=== PATIENT | male | born 1950 | race Caucasian/White ===

== ENCOUNTER 2018-11-23 20:12 | Emergency (ER) | payer MEDICARE, BC ==
[~2018-11-23] VITALS: Ht 185.4 cm; Wt 110.9 kg
[~2018-11-23 20:12] MED LIST: CLARISPRAY50 MCG/ACT IN; CLARITIN10 M1 PO; HYDROCHLOROT25 MG PO; LEVOTHYROXIN50 MCG PO; LISINOPRIL10 M1 PO; OMEGA-3 KRILL O1 CA1 PO; PERCOCET 5/325M1 TAB PO; PRILOSEC20 MG PO; PROZAC40 MG PO; XANAX0.25 MG PO
[2018-11-23 21:10] LABS: HEMATOCRIT 38.6 % (39.0-50.0); HEMOGLOBIN 13.1 g/dl (14.0-18.0); IMMATURE GRANULOCYTES 1.2 % (0.0-5.0); MEAN CELL VOLUME 91.5 fL CALC (80.0-100.0); MEAN CORPUSCULAR HGB CONC 33.9 g/L CALC (32.0-36.0); NEUT# 5.65 thou/uL (1.82-7.42); RED BLOOD COUNT 4.22 mill/uL (4.70-6.10)
[2018-11-23 21:24] LABS: ALBUMIN 4.5 g/dL (3.2-5.0); ALKALINE PHOSPHATASE 114 u/l (38-126); ANION GAP 17 (6-22 (CALC)); BILIRUBIN, TOTAL 0.4 mg/dL (0.0-1.4); BUN 21 mg/dL (8-23); BUN/CREATININE RATIO 18 (12-20 (CALC)); CARBON DIOXIDE 26 mmol/l (22-30); CHLORIDE 100 mmol/l (95-108); CREATININE 1.1 mg/dL (0.7-1.3); GFR > 60 ML/MIN (>=60 (CALC)); GFR FOR AFR.AMER. > 60 ML/MIN (>=60 (CALC)); POTASSIUM 4.8 mmol/l (3.5-5.1); SGOT/AST 29 u/l (19-48); SODIUM 138 mmol/l (137-146); TOTAL PROTEIN 7.9 g/dL (6.3-8.2)
[2018-11-23] MEDS ORDERED: ROBITUSSIN AC10 ML PO (22:08)
[2018-11-23] MEDS ORDERED: TAM75CAP PO (22:08)
[2018-11-23 22:20] VITALS: BP 147/83
== END 2018-11-23 22:22 | disposition home or self-care (01) ==
LOC: ED 20:12
PROVIDERS: Emergency Medicine
DX: J10.1 Influenza due to other identified influenza virus with other respiratory manifestations (principal); R05 Cough; R09.81 Nasal congestion

== ENCOUNTER 2019-12-08 | Emergency (ER) | payer MEDICARE, OTHER ==
[~2019-12-08] MED LIST changes: +ROBITUSSIN AC10 ML PO; +TAM75CAP PO
[2019-12-08] MEDS ORDERED: CIPROFLOXACN500 MG PO (11:43)
[2019-12-08 12:08] LABS: HEMATOCRIT 37.3 % (39.0-50.0); HEMOGLOBIN 12.4 g/dl (14.0-18.0); IMMATURE GRANULOCYTES 0.5 % (0.0-5.0); MEAN CELL VOLUME 92.1 fL CALC (80.0-100.0); MEAN CORPUSCULAR HGB 30.6 pG CALC (26.0-32.0); MEAN CORPUSCULAR HGB CONC 33.2 g/L CALC (32.0-36.0); NEUT# 3.71 thou/uL (1.82-7.42); RED BLOOD COUNT 4.05 mill/uL (4.70-6.10); RED CELL DISTRI WIDTH 12.2 % (11.5-15.5)
[2019-12-08 12:24] LABS: ALBUMIN 4.5 g/dL (3.2-5.0); ALKALINE PHOSPHATASE 84 u/l (38-126); AMYLASE 59 u/l (30-110); ANION GAP 14 (6-22 (CALC)); BUN 24 mg/dL (8-23); BUN/CREATININE RATIO 24 (12-20 (CALC)); CARBON DIOXIDE 25 mmol/l (22-30); CHLORIDE 104 mmol/l (95-108); GFR > 60 ML/MIN (>=60 (CALC)); GFR FOR AFR.AMER. > 60 ML/MIN (>=60 (CALC)); LIPASE 95 u/l (23-300); POTASSIUM 4.7 mmol/l (3.5-5.1); SODIUM 138 mmol/l (137-146); TOTAL PROTEIN 8.4 g/dL (6.3-8.2)
[2019-12-08 12:26] LABS: BILIRUBIN, TOTAL 0.7 mg/dL (0.0-1.4); SGOT/AST 35 u/l (19-48)
[2019-12-08 13:51] LABS: URINE BILIRUBIN - DIPSTICK NEGATIVE (NEGATIVE); URINE BLOOD DIPSTICK NEGATIVE (NEGATIVE); URINE CLARITY CLEAR; URINE COLOR YELLOW; URINE GLUCOSE - DIPSTICK NEGATIVE (NEGATIVE); URINE KETONE NEGATIVE (NEGATIVE); URINE LEUK ESTERASE NEGATIVE (Negative); URINE NITRITE - DIPSTICK NEGATIVE (Negative); URINE PH 5.5 (4.5-8.0); URINE PROTEIN - DIPSTICK NEGATIVE (NEG-TRACE); URINE UROBILINOGEN - DIPSTICK 0.2 E.U./dL (0.2)
[2019-12-08] MEDS ORDERED: PROTONIX40 M4 PO (16:08)
== END 2019-12-08 16:20 | disposition home or self-care (01) ==
PROVIDERS: Emergency Medicine
DX: K21.9 Gastro-esophageal reflux disease without esophagitis (principal); I10 Essential (primary) hypertension; R07.9 Chest pain, unspecified; R06.02 Shortness of breath
CPT/HCPCS: Q9967

== ENCOUNTER 2023-12-20 07:36 | Emergency (ER) | payer MEDICARE, OTHER ==
[~2023-12-20] VITALS: Ht 185.4 cm; Wt 116.0 kg
[~2023-12-20 07:36] MED LIST changes: +CIPROFLOXACN500 MG PO; +PROTONIX40 M4 PO
[2023-12-20] MEDS ORDERED: AMLODIPINE BESYL5 MG PO (07:55)
[2023-12-20] MEDS ORDERED: CVS MUCUS EXT1200 MG PO (08:47)
[2023-12-20] MEDS ORDERED: BENZONATATE200 MG PO (08:47)
[2023-12-20] MEDS ORDERED: ZITHROMAX250 MG PO (08:47)
[2023-12-20] MEDS ORDERED: TAM75CAP PO (08:48)
[2023-12-20 09:32] VITALS: BP 125/78
[2023-12-24] MEDS ORDERED: PREDNISONE20 MG PO (08:05)
[2023-12-24] MEDS ORDERED: MEDDOSEPAK PO (08:05)
== END 2023-12-20 09:25 | disposition home or self-care (01) ==
LOC: ED 07:36
DX: J10.1 Influenza due to other identified influenza virus with other respiratory manifestations (principal); I10 Essential (primary) hypertension; F41.9 Anxiety disorder, unspecified; K21.9 Gastro-esophageal reflux disease without esophagitis; Z20.822 Contact with and (suspected) exposure to COVID-19